=== PATIENT | male | born 1970 | race Caucasian/White ===

== ENCOUNTER 2017-12-01 19:13 | Emergency (ER) | payer SELFPAY ==
[~2017-12-01] VITALS: Ht 185.4 cm; Wt 95.3 kg
[~2017-12-01 19:13] MED LIST: 'PARAFON FORTE500 M1 PO; ASPIRIN81 M1 PO; DICLOFENAC POTA50 MG PO; HYDROCODONE BIT1 T11 PO; LYRICA100 MG PO; LYRICA75 MG PO; NAPROSYN500 MG PO; OXYCONTIN PO; PERCOCET 325 MG1 TA2 PO; PERCOCET 325 MG1 TA7 PO; VICODIN; VICODIN 5/500 505 MG PO; [UNRECOGNIZED DRUG - OTHER] PO
[2017-12-01] MEDS ORDERED: SEPTDS PO (19:56)
== END 2017-12-01 20:10 | disposition home or self-care (01) ==
LOC: ED 19:13
DX: S60.454A Superficial foreign body of right ring finger, initial encounter (principal); Z88.0 Allergy status to penicillin; Z88.5 Allergy status to narcotic agent; Z79.899 Other long term (current) drug therapy; X58.XXXA Exposure to other specified factors, initial encounter; Y93.89 Activity, other specified; Y92.89 Other specified places as the place of occurrence of the external cause; Y99.9 Unspecified external cause status